=== PATIENT | male | born 2000 | race Caucasian/White ===

== ENCOUNTER 2022-03-26 10:59 | Emergency (ER) | payer BC, OTHER ==
[2022-03-26] MEDS ORDERED: Ketorolac Tromethamine 30 MG/ML VIAL ONE (12:12)
== END 2022-03-26 12:23 | disposition home or self-care (01) ==
LOC: ERS 10:59
DX: M25.511 Pain in right shoulder (principal); K21.9 Gastro-esophageal reflux disease without esophagitis
CPT/HCPCS: 96374; J1885

== ENCOUNTER 2022-04-29 08:18 | Outpatient (CLI) | payer OTHER | END 2022-04-29 08:19 | disposition home or self-care (01) | LOC: TBSIIMAG 08:18 | PROVIDERS: ATTEND Family Medicine | DX: S43.301A Subluxation of unspecified parts of right shoulder girdle, initial encounter (principal); S43.431A Superior glenoid labrum lesion of right shoulder, initial encounter; S46.811A Strain of other muscles, fascia and tendons at shoulder and upper arm level, right arm, initial encounter; M25.811 Other specified joint disorders, right shoulder ==

== ENCOUNTER 2022-11-30 22:53 | Emergency (ER) | payer BC ==
[2022-11-30] MEDS ORDERED: Ketorolac Tromethamine 30 MG/ML VIAL ONE (23:45)
[2022-11-30] MEDS ORDERED: PROPOFOL 20 ML ONE (23:45)
== END 2022-12-01 00:52 | disposition home or self-care (01) ==
LOC: ERS 22:53
DX: S43.014A Anterior dislocation of right humerus, initial encounter (principal); K21.9 Gastro-esophageal reflux disease without esophagitis; Y93.66 Activity, soccer
CPT/HCPCS: 23650; 96374; J1885; J2704